=== PATIENT | female | born 1950 | race Caucasian/White ===

== ENCOUNTER 2017-10-05 08:34 | Day surgery (SDC) | payer OTHER ==
[~2017-10-05 08:34] MED LIST: Acetaminophen TAB* 325 MG PO PRN; Buffered Lidocaine 0.9% SYRIN* 5 ML/SYR SYRINGE INTRADERM ONE
[2017-10-05] MEDS ORDERED: Midazolam* 1 MG/ML 5 ML VIAL (5 MG) ONE (10:42)
[2017-10-05 11:42] VITALS: BP 124/69
[2017-10-05] MEDS ORDERED: Ketorolac 0.5% OPHTH (NF) 0.5 % 5 ML BTL ONE ×2 (15:10→15:32)
[2017-10-05] MEDS ORDERED: Povidone Iodine 5% OPTH* 30 ML BTL ONE ×2 (15:10→15:32)
[2017-10-05] MEDS ORDERED: Cyclopentolate 1% OPTH.SOL* 2 ML BTL ONE ×2 (15:10→15:32)
[2017-10-05] MEDS ORDERED: Proparacaine 0.5% OPHTH.SOL* 15 ML BTL ONE ×2 (15:10→15:32)
[2017-10-05] MEDS ORDERED: acetaZOLAMIDE TAB* 250 MG ONE ×2 (15:10→15:32)
[2017-10-05] MEDS ORDERED: Phenylephrine 2.5% OPTH.SOL* 2 ML BTL ONE ×2 (15:10→15:32)
[2017-10-05] MEDS ORDERED: Lidocaine 1%* 5 ML VIAL ONE (15:10)
[2017-10-05] MEDS ORDERED: Neomycin/Polymy/Dex OPTH.SUSP* MAXITROL 0.1% 5 ML ONE ×2 (15:10→15:32)
[2017-10-05] MEDS ORDERED: Lidocaine 2% EPI 1:200000 MPF*10-20 ML VIAL ONE ×2 (15:10→15:32)
--- NOTE | 2017-10-06 05:14 | OP ---
DATE OF OPERATION: 10/05/17 [facility] DATE OF : 48 SURGEON: Rayray Camarena M.D. PREOPERATIVE DIAGNOSIS: Cataract, left eye. POSTOPERATIVE DIAGNOSIS: Cataract, left eye. OPERATIVE PROCEDURE: Extracapsular cataract extraction with intraocular lens implant left eye. DESCRIPTION OF PROCEDURE: The patient was brought to the operating room after being given 1/2% Alcaine with epinephrine drops in the preoperative area. The eye was prepped and draped in the usual sterile fashion. Sterile drape and eyelid speculum were placed. Again, topical 1/2% Alcaine with epinephrine was given. A paracentesis incision was made at 3 o'clock position with the No.75 blade. Clear cornea incision 2.2 x 2.2-mm was created at the 6 o'clock position starting at the anterior limbus using the 2.2-mm keratome. The anterior chamber was irrigated with 0.4 mL of 1% non-preservative intracameral lidocaine and filled with DisCoVisc. A capsulorrhexis was completed using the cystotome and the Utrata forceps. Hydrodissection was performed with balanced salt solution. The lens nucleus was removed with the Phacoemulsification handpiece without incident. Cortex was removed with the irrigation-aspiration handpiece. The capsular bag was re-inflated using DisCoVisc and an [id number] 23 implant was inserted with the shooter. The irrigation-aspiration handpiece was used to remove all residual DisCoVisc. The eye was refilled with balanced salt solution and the wound checked and found to be watertight. Topical Maxitrol drops were given. The pupil is very small, so a Malyugin ring was needed to dilate the pupil prior to capsulorrhexis and removed after insertion of the lens. Indication for complex cataract surgery, iris abnormalities requiring pupil dilation device. [id number]/[facility] #: [id number] MTDD
== END 2017-10-05 11:50 | disposition home or self-care (01) ==
LOC: OREAST 08:34
PROVIDERS: ATTEND Specialist
DX: H25.12 Age-related nuclear cataract, left eye (principal); H21.562 Pupillary abnormality, left eye; H43.813 Vitreous degeneration, bilateral; H18.51 Endothelial corneal dystrophy; Z87.891 Personal history of nicotine dependence; J30.89 Other allergic rhinitis
CPT/HCPCS: A9270-GY; J2250; V2632

== ENCOUNTER 2017-10-12 08:47 | Day surgery (SDC) | payer OTHER ==
[~2017-10-12 08:47] MED LIST changes: -Acetaminophen TAB* 325 MG PO PRN
[2017-10-12] MEDS ORDERED: Midazolam* 1 MG/ML 2 ML VIAL (2 MG) ONE ×2 (10:57→11:00)
[2017-10-12 11:46] VITALS: BP 143/67
[2017-10-12] MEDS ORDERED: Phenylephrine 2.5% OPTH.SOL* 2 ML BTL ONE (13:35)
[2017-10-12] MEDS ORDERED: Lidocaine 2% EPI 1:200000 MPF*10-20 ML VIAL ONE (13:35)
[2017-10-12] MEDS ORDERED: Ketorolac 0.5% OPHTH (NF) 0.5 % 5 ML BTL ONE (13:35)
[2017-10-12] MEDS ORDERED: Lidocaine 1%* 5 ML VIAL ONE (13:35)
[2017-10-12] MEDS ORDERED: Proparacaine 0.5% OPHTH.SOL* 15 ML BTL ONE (13:35)
[2017-10-12] MEDS ORDERED: Cyclopentolate 1% OPTH.SOL* 2 ML BTL ONE (13:35)
[2017-10-12] MEDS ORDERED: Povidone Iodine 5% OPTH* 30 ML BTL ONE (13:35)
[2017-10-12] MEDS ORDERED: Neomycin/Polymy/Dex OPTH.SUSP* MAXITROL 0.1% 5 ML ONE (13:35)
--- NOTE | 2017-10-13 02:20 | OP ---
DATE OF OPERATION: 10/12/17 - [facility] DATE OF : 48 SURGEON: Rayray Camarena M.D. PREOPERATIVE DIAGNOSIS: Cataract, right eye. POSTOPERATIVE DIAGNOSIS: Cataract, right eye. OPERATIVE PROCEDURE: Extracapsular cataract extraction with intraocular lens implant right eye. DESCRIPTION OF PROCEDURE: The patient was brought to the operating room after being given 1/2% Alcaine with epinephrine drops in the preoperative area. The eye was prepped and draped in the usual sterile fashion. Sterile drape and eyelid speculum were placed. Again, topical 1/2% Alcaine with epinephrine was given. A paracentesis incision was made at the 9 o'clock position with the No.75 blade. Clear cornea incision 2.2 x 2.2-mm was created at the 12 o'clock position starting at the anterior limbus using the 2.2-mm keratome. The anterior chamber was irrigated with 0.4 mL of 1% non-preservative intracameral lidocaine and filled with DisCoVisc. A capsulorrhexis was completed using the cystotome and the Utrata forceps. Hydrodissection was performed with balanced salt solution. The lens nucleus was removed with the Phacoemulsification handpiece without incident. Cortex was removed with the irrigation-aspiration handpiece. The capsular bag was re-inflated using DisCoVisc and an SN60WF 22.5 implant was inserted with the shooter. The pupil was only 4 mm. A Malyugin ring was used to dilate the pupil, placed prior to capsulorrhexis removed after insertion of the lens. The irrigation-aspiration handpiece was used to remove all residual DisCoVisc. The eye was refilled with balanced salt solution and the wound checked and found to be watertight. Topical Maxitrol drops were given. Indications for complex cataract surgery. Pupil abnormalities requiring pupil dilation device. [id number]/[facility] #: [id number] MTDAna María
== END 2017-10-12 11:30 | disposition home or self-care (01) ==
LOC: OREAST 08:47
PROVIDERS: ATTEND Specialist
DX: H25.11 Age-related nuclear cataract, right eye (principal); H21.561 Pupillary abnormality, right eye; H18.51 Endothelial corneal dystrophy; Z87.891 Personal history of nicotine dependence; M47.12 Other spondylosis with myelopathy, cervical region
CPT/HCPCS: A9270-GY; J2250; V2632

== ENCOUNTER 2018-11-12 18:52 | Emergency (ER) | payer OTHER ==
[2018-11-12 18:59] VITALS: BP 136/78
--- NOTE | 2018-11-12 19:30 | UC ---
Skin Complaint HPI - HPI Summary HPI Summary: C/O ? INSECT BITE TO RIGHT SIDE ABD. PT STATES SHE WAS GETTING OUT OF THE SHOWER TONIGHT AND NOTICED RED "BULLSEYE" RASH IN THIS AREA. - History of Current Complaint Chief Complaint: UCSkin Time Seen by Provider: 11/12/18 19:11 Stated Complaint: INSECT BITE Hx Obtained From: Patient ?: No Onset/Duration: Sudden Onset, Lasting Hours Skin Exposure Onset/Duration: Hours Ago Timing: Constant Onset Severity: Mild Current Severity: None Pain Intensity: 0 Character: Redness Aggravating Factor(s): Nothing Alleviating Factor(s): Nothing Related History: Other: - unknown, does not remember getting bit, just a red patch on the lower right abdomen - Allergy/Home Medications Allergies/Adverse Reactions: Allergies Allergy/AdvReac Type Severity Reaction Status Date / Time Sulfa (Sulfonamide Allergy RASH, Verified 11/12/18 19:00 Antibiotics) ITCHING amoxicillin [From Augmentin] AdvReac Diarrhea Verified 11/12/18 19:00 clavulanic acid AdvReac Diarrhea Verified 11/12/18 19:00 [From Augmentin] erythromycin base AdvReac Vomiting Verified 11/12/18 19:00 PMH/Surg Hx/FS Hx/Imm Hx Previously Healthy: Yes - Surgical History Surgical History: Yes Surgery Procedure, Year, and Place: ovarian 1985. hysterectomy 1999. OOPHORECTOMY - Family History Known Family History: Positive: Hypertension - Social History Alcohol Use: Daily Alcohol Amount: 1 GLASS WINE DAILY Substance Use Type: None Smoking Status (MU): Former Smoker Type: Cigarettes Have You Smoked in the Last Year: No When Did the Patient Quit Smoking/Using Tobacco: 1984 - Immunization History Most Recent Tetanus Shot: UNSURE Review of Systems All Other Systems Reviewed And Are Negative: Yes Skin: Positive: Other - red spot size of sandra Is Patient Immunocompromised?: No Physical Exam Triage Information Reviewed: Yes Appearance: Well-Appearing, No Pain Distress, Well-Nourished Vital Signs: Initial Vital Signs Temp 98 F 11/12/18 18:55 Pulse 66 11/12/18 18:55 Resp 16 11/12/18 18:55 BP 136/78 11/12/18 18:55 Pulse Ox 97 11/12/18 18:55 Vital Signs Reviewed: Yes Eye Exam: Normal ENT Exam: Normal Dental Exam: Normal Neck exam: Normal Respiratory Exam: Normal Cardiovascular Exam: Normal Abdominal Exam: Normal Bowel Sounds: Positive: Present Musculoskeletal Exam: Normal Neurological Exam: Normal Psychological Exam: Normal Skin: Positive: Other - erythema about the size of a sandra on lower abdomen, no bullseye noted, not painful, pruritic or raised. no scaling noted, patient noted it after her shower. Course/Dx - Course Course Of Treatment: hx obtained, exam performed ,meds reviewed, given information on tick bites and lyme disease as that is what she is concerned about. will follow up with her PCP if more symptoms develop - Differential Diagnoses - Skin Complaint Differential Diagnoses: Other - erythema - Diagnoses Provider Diagnosis: Skin spots, red Discharge ED - Sign-Out/Discharge Documenting (check all that apply): Patient Departure All imaging exams completed and their final reports reviewed: No Studies - Discharge Plan Condition: Stable Disposition: HOME Patient Education Materials: Lyme Disease (ED), Tick Bite (ED) Referrals: Elissa Pulido MD [Primary Care Provider] - Additional Instructions: 1. monitor the area 2. If it persists or develops a red ring, follow up with your Docotr for further bloodowrk and treatment. 3. At this time it does not appear to be lyme disease related, i have included information on tick bites and lyme disease for your information. - Billing Disposition and Condition Condition: STABLE Disposition: Home
== END 2018-11-12 19:30 | disposition home or self-care (01) ==
LOC: UCEAST 18:52
DX: L98.9 Disorder of the skin and subcutaneous tissue, unspecified (principal); Z87.891 Personal history of nicotine dependence
CPT/HCPCS: 99211; G0463